=== PATIENT | female | born 1970 | race Two or more races ===

== ENCOUNTER 2017-07-10 04:09 | Inpatient (IN) | payer OTHER ==
[~2017-07-10] VITALS: Ht 152.4 cm; Wt 72.6 kg
[2017-07-10] MEDS ORDERED: SYNTHROID50 MCG (04:20)
== END 2017-07-14 20:39 | disposition home or self-care (01) | DRG 440 ==
LOC: ER 04:09 → SURH 13:42 → MEDJ 07-13 16:28
PROC: BW40ZZZ Ultrasonography of Abdomen (ICD-10-PCS; principal; 2017-07-10)
DX: K85.80 Other acute pancreatitis without necrosis or infection (principal); E03.8 Other specified hypothyroidism; I10 Essential (primary) hypertension; Z90.49 Acquired absence of other specified parts of digestive tract

== ENCOUNTER 2022-02-16 04:25 | Emergency (ER) | payer OTHER ==
[~2022-02-16] VITALS: Ht 157.5 cm; Wt 77.1 kg
[~2022-02-16 04:25] MED LIST: SYNTHROID50 MCG
== END 2022-02-16 16:12 | disposition home or self-care (01) ==
LOC: ER 04:25
DX: R10.84 Generalized abdominal pain (principal); R11.2 Nausea with vomiting, unspecified; E03.9 Hypothyroidism, unspecified; Z88.5 Allergy status to narcotic agent; Z91.013 Allergy to seafood